=== PATIENT | female | born 1930 | race Caucasian/White ===

== ENCOUNTER → 2017-05-24 | Outpatient (CLI) | payer MEDICARE, OTHER ==
[2014-08-20 13:00] VITALS: BP 145/70
[~2017-05-24] MED LIST: ALPR0.254 PO; ASPI-482 PO; CALCIUM PO; DILT120C80 PO; ERGO500027 PO; FERR-26 PO; FURO-69 PO; GABA-586 PO; LOPE2TAB27 PO; LORA10TA68 PO; METO50TA2 PO; MULT1TAB88 PO; Oxycodone Hcl/Acetaminophen PO; POLY17PO29 PO; POTA20TA82 PO; PRED2.5T PO; PROP10DR3 EACHEYE; WARF2.5T83 PO; Warfarin Sodium MC; XOPENEX1.25 MG/3 IH; ZOLP6.252 PO
== END | disposition home or self-care (01) ==
LOC: PMGWOUND 08:59
PROVIDERS: ATTEND Preventive Medicine Undersea and Hyperbaric Medicine
DX: I87.312 Chronic venous hypertension (idiopathic) with ulcer of left lower extremity (principal); L97.821 Non-pressure chronic ulcer of other part of left lower leg limited to breakdown of skin; M81.0 Age-related osteoporosis without current pathological fracture; J44.9 Chronic obstructive pulmonary disease, unspecified; I11.0 Hypertensive heart disease with heart failure; I50.9 Heart failure, unspecified; F32.9 Major depressive disorder, single episode, unspecified; I48.91 Unspecified atrial fibrillation; M19.90 Unspecified osteoarthritis, unspecified site
CPT/HCPCS: 97597

== ENCOUNTER 2017-05-28 08:25 | Day surgery (SDC) | payer MEDICARE, OTHER ==
[~2017-05-28 08:25] MED LIST changes: -ALPR0.254 PO; -ASPI-482 PO; -CALCIUM PO; -DILT120C80 PO; -ERGO500027 PO; -FERR-26 PO; -FURO-69 PO; -GABA-586 PO; +HYDROmorphone 2 MG/ML VIAL IV; +LIDOCAINE 1% PF 2 ML VIAL. ID; -LOPE2TAB27 PO; -LORA10TA68 PO; -METO50TA2 PO; -MULT1TAB88 PO; +ONDANSETRON PF 4 MG/2 ML VIAL. IV; -Oxycodone Hcl/Acetaminophen PO; -POLY17PO29 PO; -POTA20TA82 PO; -PRED2.5T PO; +PROCHLORPERAZINE 10 MG/2 ML VIAL. IV; -PROP10DR3 EACHEYE; -WARF2.5T83 PO; -Warfarin Sodium MC; -XOPENEX1.25 MG/3 IH; -ZOLP6.252 PO
[2017-05-28] MEDS ORDERED: PROPOFOL 20 ML IV (09:06)
[2017-05-28] MEDS ORDERED: LIDOCAINE 2% PF Vial for OR 5 ML VIAL. (09:07)
[2017-05-28] MEDS ORDERED: fentaNYL PF VIAL 100 MCG/2 ML VIAL ×2 (09:07→11:18)
[2017-05-28] MEDS: IV RINGERS,LACTATED 1000ML 1,000 ML IV (09:15)
[2017-05-28 09:27] LABS: INR 1.3 (0.8-1.1); PROTHROMBIN TIME PATIENT 15.3 SEC (11.7-14.0)
[2017-05-28] MEDS ORDERED: BUPIVAC MPF-EPI 0.5%-1:200000 30 ML VIAL. (10:28)
[2017-05-28] MEDS ORDERED: BUPIVACAINE MPF 0.5% 30 ML VIAL. (10:28)
[2017-05-28] MEDS: BUPIVACAINE MPF 0.5% 30 ML VIAL. IJ (10:44)
[2017-05-28] MEDS: SURGICEL HEMOSTAT 4X8 EACH. TP (10:44)
[2017-05-28] MEDS: NEOMY/BACITR/POLYMYXIN OINT PACKET. TP (10:44)
[2017-05-28] MEDS ORDERED: ONDANSETRON PF 4 MG/2 ML VIAL. (10:48)
[2017-05-28] MEDS ORDERED: SURGICEL HEMOSTAT 4X8 EACH. (10:57)
[2017-05-28] MEDS ORDERED: NEOMY/BACITR/POLYMYXIN OINT PACKET. TP (10:58)
[2017-05-28] MEDS: fentaNYL PF VIAL 100 MCG/2 ML VIAL IV ×3 (11:20→11:49)
[2017-05-28] MEDS ORDERED: MORPHINE SULFATE 2 MG/ML DISP.SYRIN. (11:47)
[2017-05-28] MEDS: MORPHINE SULFATE 2 MG/ML DISP.SYRIN. IV ×2 (11:58→12:11)
[2017-05-28] MEDS: HYDROcodone/APAP 10/325 1 TAB TABLET PO (12:38)
== END 2017-05-28 13:43 | disposition home or self-care (01) ==
LOC: SURG 08:25
DX: S81.802A Unspecified open wound, left lower leg, initial encounter (principal); I87.2 Venous insufficiency (chronic) (peripheral); I48.1 Persistent atrial fibrillation; E66.01 Morbid (severe) obesity due to excess calories; Z68.38 Body mass index [BMI] 38.0-38.9, adult; Z79.899 Other long term (current) drug therapy; Z98.890 Other specified postprocedural states; X58.XXXA Exposure to other specified factors, initial encounter; Y93.89 Activity, other specified; Y92.89 Other specified places as the place of occurrence of the external cause; Y99.8 Other external cause status; Z91.040 Latex allergy status; Z91.048 Other nonmedicinal substance allergy status
CPT/HCPCS: 11043; 36415; 85610; J0690; J2270; J2405; J2704; J3010; J3490

== ENCOUNTER → 2017-06-03 | Outpatient (CLI) | payer MEDICARE, OTHER ==
[2017-05-28 11:55] VITALS: BP 117/70
[~2017-06-03] MED LIST changes: +ACET325T9 PO; +ALPR0.254 PO; +ASPI-482 PO; +CALCIUM PO; +CETI10TA22 PO; +DILT120C80 PO; +DOCU100C28 PO; +ERGO500027 PO; +FERR-26 PO; +FURO-69 PO; +GABA-586 PO; +HYDR-963 PO; -HYDROmorphone 2 MG/ML VIAL IV; -LIDOCAINE 1% PF 2 ML VIAL. ID; +LOPE2TAB27 PO; +LORA10TA68 PO; +METO50TA6 PO; +MINE120C TP; +MIRT15TA PO; +MULT1TAB88 PO; +NYST1POW2 PO; -ONDANSETRON PF 4 MG/2 ML VIAL. IV; +Oxycodone Hcl/Acetaminophen PO; +POLY17PO29 PO; +POTA20TA82 PO; +PRED2.5T PO; -PROCHLORPERAZINE 10 MG/2 ML VIAL. IV; +PROP10DR3 EACHEYE; +PSYL3.4P PO; +WARF2.5T83 PO; +WARF3TAB7 PO; +Warfarin Sodium MC; +XOPENEX1.25 MG/3 IH; +ZOLP6.252 PO
== END | disposition home or self-care (01) ==
LOC: PMGWOUND 11:23
PROVIDERS: ATTEND Emergency Medicine Undersea and Hyperbaric Medicine
DX: I87.392 Chronic venous hypertension (idiopathic) with other complications of left lower extremity (principal); L97.223 Non-pressure chronic ulcer of left calf with necrosis of muscle; I48.91 Unspecified atrial fibrillation; I89.0 Lymphedema, not elsewhere classified; J44.9 Chronic obstructive pulmonary disease, unspecified; F32.9 Major depressive disorder, single episode, unspecified; M19.90 Unspecified osteoarthritis, unspecified site; E66.01 Morbid (severe) obesity due to excess calories; Z68.38 Body mass index [BMI] 38.0-38.9, adult; M81.0 Age-related osteoporosis without current pathological fracture; I11.0 Hypertensive heart disease with heart failure; I50.9 Heart failure, unspecified
CPT/HCPCS: 97597

== ENCOUNTER → 2017-06-05 | Outpatient (CLI) | payer MEDICARE, OTHER ==
[2017-05-28 11:55] VITALS: BP 117/70
[~2017-06-05] MED LIST changes: -DOCU100C28 PO; +METO50TA2 PO; -METO50TA6 PO; -NYST1POW2 PO; -WARF3TAB7 PO
== END | disposition home or self-care (01) ==
LOC: PMGWOUND 11:53
PROVIDERS: ATTEND Preventive Medicine Undersea and Hyperbaric Medicine
DX: I87.392 Chronic venous hypertension (idiopathic) with other complications of left lower extremity (principal); L97.223 Non-pressure chronic ulcer of left calf with necrosis of muscle; J44.9 Chronic obstructive pulmonary disease, unspecified; I48.91 Unspecified atrial fibrillation; M81.0 Age-related osteoporosis without current pathological fracture; I11.0 Hypertensive heart disease with heart failure; I50.9 Heart failure, unspecified; F32.9 Major depressive disorder, single episode, unspecified; M19.90 Unspecified osteoarthritis, unspecified site; I89.0 Lymphedema, not elsewhere classified; E66.01 Morbid (severe) obesity due to excess calories; Z68.38 Body mass index [BMI] 38.0-38.9, adult
CPT/HCPCS: 97605

== ENCOUNTER → 2017-06-07 | Outpatient (CLI) | payer MEDICARE, OTHER ==
[2017-05-28 11:55] VITALS: BP 117/70
[~2017-06-07] MED LIST changes: -METO50TA2 PO; +METO50TA6 PO
== END | disposition home or self-care (01) ==
LOC: PMGWOUND 10:48
PROVIDERS: ATTEND Preventive Medicine Undersea and Hyperbaric Medicine
DX: I87.392 Chronic venous hypertension (idiopathic) with other complications of left lower extremity (principal); L97.223 Non-pressure chronic ulcer of left calf with necrosis of muscle; I48.91 Unspecified atrial fibrillation; I11.0 Hypertensive heart disease with heart failure; I50.9 Heart failure, unspecified; F32.9 Major depressive disorder, single episode, unspecified; J44.9 Chronic obstructive pulmonary disease, unspecified; M81.0 Age-related osteoporosis without current pathological fracture; M19.90 Unspecified osteoarthritis, unspecified site; I89.0 Lymphedema, not elsewhere classified; E66.01 Morbid (severe) obesity due to excess calories; Z68.38 Body mass index [BMI] 38.0-38.9, adult
CPT/HCPCS: 97597; 97605

== ENCOUNTER → 2017-06-10 | Outpatient (CLI) | payer MEDICARE, OTHER ==
[2017-05-28 11:55] VITALS: BP 117/70
== END | disposition home or self-care (01) ==
LOC: PMGWOUND 10:47
PROVIDERS: ATTEND Emergency Medicine Undersea and Hyperbaric Medicine
DX: I87.392 Chronic venous hypertension (idiopathic) with other complications of left lower extremity (principal); L97.223 Non-pressure chronic ulcer of left calf with necrosis of muscle; M81.0 Age-related osteoporosis without current pathological fracture; J44.9 Chronic obstructive pulmonary disease, unspecified; F32.9 Major depressive disorder, single episode, unspecified; E66.01 Morbid (severe) obesity due to excess calories; I48.91 Unspecified atrial fibrillation; M19.90 Unspecified osteoarthritis, unspecified site; I11.0 Hypertensive heart disease with heart failure; I50.9 Heart failure, unspecified; I89.0 Lymphedema, not elsewhere classified; Z68.38 Body mass index [BMI] 38.0-38.9, adult
CPT/HCPCS: 97605

== ENCOUNTER → 2017-06-12 | Outpatient (CLI) | payer MEDICARE, OTHER ==
[2017-05-28 11:55] VITALS: BP 117/70
== END | disposition home or self-care (01) ==
LOC: PMGWOUND 10:41
PROVIDERS: ATTEND Preventive Medicine Undersea and Hyperbaric Medicine
DX: I87.392 Chronic venous hypertension (idiopathic) with other complications of left lower extremity (principal); L97.223 Non-pressure chronic ulcer of left calf with necrosis of muscle; I48.91 Unspecified atrial fibrillation; M81.0 Age-related osteoporosis without current pathological fracture; I89.0 Lymphedema, not elsewhere classified; J44.9 Chronic obstructive pulmonary disease, unspecified; F32.9 Major depressive disorder, single episode, unspecified; M19.90 Unspecified osteoarthritis, unspecified site; I11.0 Hypertensive heart disease with heart failure; I50.9 Heart failure, unspecified; E66.01 Morbid (severe) obesity due to excess calories; Z68.38 Body mass index [BMI] 38.0-38.9, adult
CPT/HCPCS: 97605

== ENCOUNTER → 2017-06-14 | Outpatient (CLI) | payer MEDICARE, OTHER ==
[2017-05-28 11:55] VITALS: BP 117/70
== END | disposition home or self-care (01) ==
LOC: PMGWOUND 10:35
PROVIDERS: ATTEND Preventive Medicine Undersea and Hyperbaric Medicine
DX: I87.392 Chronic venous hypertension (idiopathic) with other complications of left lower extremity (principal); L97.223 Non-pressure chronic ulcer of left calf with necrosis of muscle; I48.91 Unspecified atrial fibrillation; M81.0 Age-related osteoporosis without current pathological fracture; J44.9 Chronic obstructive pulmonary disease, unspecified; I11.0 Hypertensive heart disease with heart failure; I50.9 Heart failure, unspecified; F32.9 Major depressive disorder, single episode, unspecified; M19.90 Unspecified osteoarthritis, unspecified site; I89.0 Lymphedema, not elsewhere classified; E66.01 Morbid (severe) obesity due to excess calories; Z68.38 Body mass index [BMI] 38.0-38.9, adult
CPT/HCPCS: 97597

== ENCOUNTER → 2017-06-17 | Outpatient (CLI) | payer MEDICARE, OTHER ==
[2017-05-28 11:55] VITALS: BP 117/70
== END | disposition home or self-care (01) ==
LOC: PMGWOUND 10:48
PROVIDERS: ATTEND Emergency Medicine Undersea and Hyperbaric Medicine
DX: I87.392 Chronic venous hypertension (idiopathic) with other complications of left lower extremity (principal); L97.223 Non-pressure chronic ulcer of left calf with necrosis of muscle; J44.9 Chronic obstructive pulmonary disease, unspecified; F32.9 Major depressive disorder, single episode, unspecified; E66.01 Morbid (severe) obesity due to excess calories; M19.90 Unspecified osteoarthritis, unspecified site; M81.0 Age-related osteoporosis without current pathological fracture; I89.0 Lymphedema, not elsewhere classified; I11.0 Hypertensive heart disease with heart failure; I50.9 Heart failure, unspecified; I48.1 Persistent atrial fibrillation; Z68.38 Body mass index [BMI] 38.0-38.9, adult
CPT/HCPCS: 97605

== ENCOUNTER → 2017-06-19 | Outpatient (CLI) | payer MEDICARE, OTHER ==
[2017-05-28 11:55] VITALS: BP 117/70
[~2017-06-19] MED LIST changes: +DOCU100C28 PO; +NYST1POW2 PO; +WARF3TAB7 PO
== END | disposition home or self-care (01) ==
LOC: PMGWOUND 10:38
PROVIDERS: ATTEND Preventive Medicine Undersea and Hyperbaric Medicine
DX: I87.312 Chronic venous hypertension (idiopathic) with ulcer of left lower extremity (principal); L97.223 Non-pressure chronic ulcer of left calf with necrosis of muscle; M81.0 Age-related osteoporosis without current pathological fracture; J44.9 Chronic obstructive pulmonary disease, unspecified; I11.0 Hypertensive heart disease with heart failure; I50.9 Heart failure, unspecified; I89.0 Lymphedema, not elsewhere classified; I48.1 Persistent atrial fibrillation; F32.9 Major depressive disorder, single episode, unspecified; M19.90 Unspecified osteoarthritis, unspecified site; G47.30 Sleep apnea, unspecified; H46.9 Unspecified optic neuritis; X58.XXXD Exposure to other specified factors, subsequent encounter
CPT/HCPCS: 97605

== ENCOUNTER → 2017-06-24 | Outpatient (CLI) | payer MEDICARE, OTHER ==
[2017-05-28 11:55] VITALS: BP 117/70
== END | disposition home or self-care (01) ==
LOC: PMGWOUND 13:10
PROVIDERS: ATTEND Emergency Medicine Undersea and Hyperbaric Medicine
DX: I87.312 Chronic venous hypertension (idiopathic) with ulcer of left lower extremity (principal); L97.223 Non-pressure chronic ulcer of left calf with necrosis of muscle; J44.9 Chronic obstructive pulmonary disease, unspecified; F32.9 Major depressive disorder, single episode, unspecified; E66.01 Morbid (severe) obesity due to excess calories; M19.90 Unspecified osteoarthritis, unspecified site; M81.0 Age-related osteoporosis without current pathological fracture; I89.0 Lymphedema, not elsewhere classified; I11.0 Hypertensive heart disease with heart failure; I50.9 Heart failure, unspecified; I48.1 Persistent atrial fibrillation; Z68.38 Body mass index [BMI] 38.0-38.9, adult
CPT/HCPCS: 97605

== ENCOUNTER → 2017-06-26 | Outpatient (CLI) | payer MEDICARE, OTHER ==
[2017-05-28 11:55] VITALS: BP 117/70
[~2017-06-26] MED LIST changes: -DOCU100C28 PO; -NYST1POW2 PO; -WARF3TAB7 PO
== END | disposition home or self-care (01) ==
LOC: PMGWOUND 10:51
PROVIDERS: ATTEND Preventive Medicine Undersea and Hyperbaric Medicine
DX: I87.312 Chronic venous hypertension (idiopathic) with ulcer of left lower extremity (principal); L97.223 Non-pressure chronic ulcer of left calf with necrosis of muscle; J44.9 Chronic obstructive pulmonary disease, unspecified; F32.9 Major depressive disorder, single episode, unspecified; E66.01 Morbid (severe) obesity due to excess calories; M19.90 Unspecified osteoarthritis, unspecified site; M81.0 Age-related osteoporosis without current pathological fracture; I89.0 Lymphedema, not elsewhere classified; I11.0 Hypertensive heart disease with heart failure; I50.9 Heart failure, unspecified; I48.1 Persistent atrial fibrillation; Z68.38 Body mass index [BMI] 38.0-38.9, adult
CPT/HCPCS: 97605

== ENCOUNTER → 2017-06-28 | Outpatient (CLI) | payer MEDICARE, OTHER ==
[2017-05-28 11:55] VITALS: BP 117/70
== END | disposition home or self-care (01) ==
LOC: PMGWOUND 10:42
PROVIDERS: ATTEND Preventive Medicine Undersea and Hyperbaric Medicine
DX: I87.312 Chronic venous hypertension (idiopathic) with ulcer of left lower extremity (principal); L97.223 Non-pressure chronic ulcer of left calf with necrosis of muscle; J44.9 Chronic obstructive pulmonary disease, unspecified; F32.9 Major depressive disorder, single episode, unspecified; E66.01 Morbid (severe) obesity due to excess calories; G47.30 Sleep apnea, unspecified; M19.90 Unspecified osteoarthritis, unspecified site; M81.0 Age-related osteoporosis without current pathological fracture; I89.0 Lymphedema, not elsewhere classified; I11.0 Hypertensive heart disease with heart failure; I50.9 Heart failure, unspecified; I48.1 Persistent atrial fibrillation; Z68.38 Body mass index [BMI] 38.0-38.9, adult
CPT/HCPCS: 97597; 97605

== ENCOUNTER → 2017-07-02 | Outpatient (CLI) | payer MEDICARE, OTHER ==
[2017-05-28 11:55] VITALS: BP 117/70
== END | disposition home or self-care (01) ==
LOC: PMGWOUND 09:17
PROVIDERS: ATTEND Emergency Medicine Undersea and Hyperbaric Medicine
DX: I87.312 Chronic venous hypertension (idiopathic) with ulcer of left lower extremity (principal); L97.223 Non-pressure chronic ulcer of left calf with necrosis of muscle; J44.9 Chronic obstructive pulmonary disease, unspecified; F32.9 Major depressive disorder, single episode, unspecified; E66.01 Morbid (severe) obesity due to excess calories; G47.30 Sleep apnea, unspecified; M19.90 Unspecified osteoarthritis, unspecified site; M81.0 Age-related osteoporosis without current pathological fracture; I89.0 Lymphedema, not elsewhere classified; I11.0 Hypertensive heart disease with heart failure; I50.9 Heart failure, unspecified; I48.1 Persistent atrial fibrillation; Z68.38 Body mass index [BMI] 38.0-38.9, adult
CPT/HCPCS: 97605

== ENCOUNTER → 2017-07-05 | Outpatient (CLI) | payer MEDICARE, OTHER | END | disposition home or self-care (01) | LOC: PMGWOUND 09:11 | DX: I87.312 Chronic venous hypertension (idiopathic) with ulcer of left lower extremity (principal); L97.223 Non-pressure chronic ulcer of left calf with necrosis of muscle; J44.9 Chronic obstructive pulmonary disease, unspecified; F32.9 Major depressive disorder, single episode, unspecified; G47.30 Sleep apnea, unspecified; M19.90 Unspecified osteoarthritis, unspecified site; M81.0 Age-related osteoporosis without current pathological fracture; I89.0 Lymphedema, not elsewhere classified; I11.0 Hypertensive heart disease with heart failure; I50.9 Heart failure, unspecified; I48.1 Persistent atrial fibrillation; E66.01 Morbid (severe) obesity due to excess calories; Z68.38 Body mass index [BMI] 38.0-38.9, adult | CPT/HCPCS: 97597; 97605 ==

== ENCOUNTER 2017-07-06 14:09 | Inpatient (IN) | payer MEDICARE, OTHER ==
[2017-07-06 14:40] LABS: ADD MAN DIFF? NO
[2017-07-06 14:43] LABS: BASO # 0.1 x10^3/uL (0.0-0.2); BASO % 1 % (0-3); EOS % 0 % (0-3); HEMOGLOBIN 13.5 g/dL (12.0-15.5); LYMPH # 1.1 x10^3/uL (1.0-4.8); LYMPH % 8 % (24-48); MEAN CORPUSCULAR HEMOGLOBIN 28 pg (25-35); MEAN CORPUSCULAR HGB CONC 31 g/dL (31-37); MEAN CORPUSCULAR VOLUME 89 fL (79-100); MONO # 1.3 x10^3/uL (0.0-1.1); MONO % 9 % (0-9); NEUT % 83 % (31-73); PLATELET COUNT 151 x10^3/uL (140-400); RED BLOOD COUNT 4.82 x10^6/uL (3.50-5.40); RED CELL DISTRIBUTION WIDTH 15.8 % (11.5-14.5); WHITE BLOOD COUNT 14.5 x10^3/uL (4.0-11.0)
[2017-07-06 14:55] LABS: FIBRINOGEN 532 mg/dL (200-440); PARTIAL THROMBOPLASTIN TIME 35 SEC (24-38)
[2017-07-06 14:56] LABS: INR 1.9 (0.8-1.1); PROTHROMBIN TIME PATIENT 20.7 SEC (11.7-14.0)
[2017-07-06 14:59] LABS: ANION GAP 9 (6-14); BILIRUBIN,URINE NEGATIVE (NEG); BLOOD UREA NITROGEN 15 mg/dL (7-20); BUN/CREATININE RATIO 19 (6-20); CALCIUM 8.6 mg/dL (8.5-10.1); CARBON DIOXIDE 34 mmol/L (21-32); CHLORIDE 97 mmol/L (98-107); CLARITY,URINE CLEAR; COLOR,URINE YELLOW; CREATININE 0.8 mg/dL (0.6-1.0); GFR 68.2; GLUCOSE 126 mg/dL (70-99); GLUCOSE,URINE NEGATIVE (NEG); NITRITE,URINE NEGATIVE (NEG); POTASSIUM 3.2 mmol/L (3.5-5.1); PROTEIN,URINE 30 mg/dL (NEG-TRACE); SODIUM 140 mmol/L (136-145)
[2017-07-06] MEDS: IV NORMAL SALINE 1000ML BAG 1,000 ML IV ×2 (15:01→17:14)
[2017-07-06 15:06] LABS: ALBUMIN/GLOBULIN RATIO 0.8 (1.0-1.7); ALK PHOS 70 U/L (46-116); ALT (SGPT) 13 U/L (14-59); AST (SGOT) 16 U/L (15-37); CREATINE KINASE 17 U/L (26-192); LIPASE 51 U/L (73-393); TOTAL BILIRUBIN 0.8 mg/dL (0.2-1.0); TOTAL PROTEIN 6.7 g/dL (6.4-8.2)
[2017-07-06 15:07] LABS: LACTIC ACID 1.3 mmol/L (0.4-2.0)
[2017-07-06 15:12] LABS: TROPONINI < 0.017 ng/mL (0.000-0.055)
[2017-07-06 15:12] LABS: BACTERIA,URINE 0 /HPF (0-FEW); RBC,URINE OCC /HPF (0-2); SQUAMOUS EPITHELIAL CELL,UR MOD /LPF; WBC,URINE OCC /HPF (0-4)
[2017-07-06 15:18] LABS: BASE EXCESS COOX 8 mmol/L (-3-3); CARBON MONOXIDE 1.1 % (0.0-1.9); HCO3 COOX 31 mmol/L (21-28); METHEMOGLOBIN 0.3 % (0.0-1.9); OXYHEMOGLOBIN 95.5 %; PCO2 COOX 39 mmHg (35-46); PO2 COOX 84 mmHg (65-108); SAT O2 COOX 97 % (92-99); TOTAL HEMOGLOBIN 13.7 g/dL
[2017-07-06 15:22] LABS: PH COOX 7.52 (7.35-7.45)
[2017-07-06] MEDS: VANCOMYCIN PER PHARMACY MC ×2 (16:30→19:41)
[2017-07-06] MEDS ORDERED: AMPICILLIN/SULBACTAM IV Push 3 GM VIAL. IVP (16:30)
[2017-07-06] MEDS: AMPICILLIN/SULBACTAM 3 GM in IV NORMAL SALINE 100ML 100 ML IV (16:53)
[2017-07-06] MEDS: dilTIAZem IV PUSH 25 MG/5 ML VIAL IVP (17:15)
[2017-07-06] MEDS: VANCOMYCIN 2 GM in IV DEXTROSE 5 %-0.2 % NACL 500 ML IV (17:36)
[2017-07-06] MEDS ORDERED: MINERAL OIL/PETROLATUM TOPICAL CREAM 113GM JAR. TP (22:45)
[2017-07-06] MEDS ORDERED: ACETAMINOPHEN 325 MG TABLET. PO (22:45)
[2017-07-06] MEDS ORDERED: PSYLLIUM HUSK (SUGAR FREE) 1 PKT PACKET PO (22:45)
[2017-07-06] MEDS ORDERED: ANTI-COAG MONITOR BY PHARMACY. MC (23:45)
[2017-07-07] MEDS: MIRTAZAPINE 15 MG TABLET PO ×2 (00:03→21:05)
[2017-07-07] MEDS: PIPERACILLIN/TAZOBACTAM 3.375 GM in IV DEXTROSE 5% 50 ML IV (00:03)
[2017-07-07] MEDS: WARFARIN 3 MG TABLET. PO ×2 (00:04→16:56)
[2017-07-07] MEDS: GABAPENTIN 300 MG CAPSULE. PO ×2 (00:05→21:05)
[2017-07-07] MEDS: METOPROLOL TART IMMED RELEASE 50 MG TABLET. PO ×3 (00:05→21:05)
[2017-07-07 05:09] LABS: ADD MAN DIFF? NO
[2017-07-07 05:15] LABS: BASO % 0 % (0-3); EOS % 0 % (0-3); HEMATOCRIT 40.6 % (36.0-47.0); HEMOGLOBIN 12.8 g/dL (12.0-15.5); LYMPH # 1.1 x10^3/uL (1.0-4.8); LYMPH % 9 % (24-48); MEAN CORPUSCULAR HEMOGLOBIN 28 pg (25-35); MEAN CORPUSCULAR HGB CONC 31 g/dL (31-37); MEAN CORPUSCULAR VOLUME 89 fL (79-100); MONO # 1.2 x10^3/uL (0.0-1.1); MONO % 10 % (0-9); NEUT # 9.7 x10^3uL (1.8-7.7); NEUT % 81 % (31-73); PLATELET COUNT 153 x10^3/uL (140-400); RED BLOOD COUNT 4.54 x10^6/uL (3.50-5.40); RED CELL DISTRIBUTION WIDTH 15.8 % (11.5-14.5); WHITE BLOOD COUNT 12.1 x10^3/uL (4.0-11.0)
[2017-07-07] MEDS: ASPIRIN ENTERIC COATED 81 MG TABLET.DR. PO (05:44)
[2017-07-07] MEDS: MULTIVITAMIN with MINERAL TABLET. PO (05:44)
[2017-07-07] MEDS: PIPERACILLIN/TAZO IV Push 3.375 GM VIAL. IVP ×3 (05:45→18:11)
[2017-07-07] MEDS: HYDROcodone/APAP 10/325 1 TAB TABLET PO (05:45)
[2017-07-07 06:00] LABS: ALBUMIN 2.5 g/dL (3.4-5.0); ALBUMIN/GLOBULIN RATIO 0.7 (1.0-1.7); ALK PHOS 63 U/L (46-116); ALT (SGPT) 12 U/L (14-59); ANION GAP 8 (6-14); AST (SGOT) 17 U/L (15-37); BLOOD UREA NITROGEN 10 mg/dL (7-20); BUN/CREATININE RATIO 17 (6-20); CARBON DIOXIDE 31 mmol/L (21-32); CHLORIDE 100 mmol/L (98-107); CREATININE 0.6 mg/dL (0.6-1.0); GLUCOSE 108 mg/dL (70-99); POTASSIUM 3.1 mmol/L (3.5-5.1); SODIUM 139 mmol/L (136-145); TOTAL BILIRUBIN 0.8 mg/dL (0.2-1.0); TOTAL PROTEIN 6.1 g/dL (6.4-8.2)
[2017-07-07 06:09] LABS: PROTHROMBIN TIME PATIENT 21.1 SEC (11.7-14.0)
[2017-07-07] MEDS: POTASSIUM CHLORIDE 20 MEQ TABLET.ER. PO ×2 (09:09→16:56)
[2017-07-07] MEDS: CETIRIZINE HCL 10 MG TABLET. PO (09:10)
[2017-07-07] MEDS: POLYETHYLENE GLYCOL 3350 17 GM PACKET. PO (09:10)
[2017-07-07] MEDS: FUROSEMIDE 20 MG TABLET PO ×2 (09:11→16:56)
[2017-07-07] MEDS: ACETAMINOPHEN 325 MG TABLET. PO (09:17)
[2017-07-07] MEDS: MICAFUNGIN 100 MG in IV NORMAL SALINE 100ML 100 ML IV (16:57)
[2017-07-07] MEDS: VANCOMYCIN 1.75 GM in IV DEXTROSE 5 %-0.2 % NACL 500 ML IV (18:22)
[2017-07-07] MEDS: POLYVINYL ALCOHOL 1.4% OPHTH SOLUTION 15ML BOTTLE. OU ×2 (21:04)
[2017-07-07] MEDS: NYSTATIN TOPICAL POWDER 15GM BOTTLE. TP (21:04)
[2017-07-07] MEDS: DOCUSATE SODIUM 100 MG CAPSULE. PO (21:04)
[2017-07-08] MEDS: PIPERACILLIN/TAZO IV Push 3.375 GM VIAL. IVP ×4 (00:14→17:25)
[2017-07-08 05:12] LABS: ADD MAN DIFF? NO
[2017-07-08 05:31] LABS: BASO % 0 % (0-3); EOS # 0.1 x10^3/uL (0.0-0.7); EOS % 2 % (0-3); HEMATOCRIT 42.1 % (36.0-47.0); HEMOGLOBIN 13.1 g/dL (12.0-15.5); LYMPH % 10 % (24-48); MEAN CORPUSCULAR HEMOGLOBIN 28 pg (25-35); MEAN CORPUSCULAR HGB CONC 31 g/dL (31-37); MEAN CORPUSCULAR VOLUME 90 fL (79-100); MONO # 1.1 x10^3/uL (0.0-1.1); MONO % 11 % (0-9); NEUT # 7.6 x10^3uL (1.8-7.7); NEUT % 77 % (31-73); PLATELET COUNT 175 x10^3/uL (140-400); RED BLOOD COUNT 4.66 x10^6/uL (3.50-5.40); RED CELL DISTRIBUTION WIDTH 16.1 % (11.5-14.5); WHITE BLOOD COUNT 9.9 x10^3/uL (4.0-11.0)
[2017-07-08 05:38] LABS: INR 2.6 (0.8-1.1); PROTHROMBIN TIME PATIENT 25.9 SEC (11.7-14.0)
[2017-07-08 05:59] LABS: ALBUMIN 2.4 g/dL (3.4-5.0); ALBUMIN/GLOBULIN RATIO 0.6 (1.0-1.7); ALK PHOS 65 U/L (46-116); ALT (SGPT) 12 U/L (14-59); ANION GAP 6 (6-14); AST (SGOT) 18 U/L (15-37); BLOOD UREA NITROGEN 10 mg/dL (7-20); BUN/CREATININE RATIO 17 (6-20); CALCIUM 8.2 mg/dL (8.5-10.1); CARBON DIOXIDE 35 mmol/L (21-32); CHLORIDE 102 mmol/L (98-107); CREATININE 0.6 mg/dL (0.6-1.0); GLUCOSE 97 mg/dL (70-99); POTASSIUM 3.2 mmol/L (3.5-5.1); SODIUM 143 mmol/L (136-145); TOTAL BILIRUBIN 0.6 mg/dL (0.2-1.0); TOTAL PROTEIN 6.3 g/dL (6.4-8.2)
[2017-07-08] MEDS: POLYETHYLENE GLYCOL 3350 17 GM PACKET. PO (08:00)
[2017-07-08] MEDS: VANCOMYCIN PER PHARMACY MC ×2 (08:04→19:45)
[2017-07-08] MEDS: POTASSIUM CHLORIDE 20 MEQ TABLET.ER. PO ×2 (08:56→17:24)
[2017-07-08] MEDS: METOPROLOL TART IMMED RELEASE 50 MG TABLET. PO ×2 (08:57→21:40)
[2017-07-08] MEDS: MULTIVITAMIN with MINERAL TABLET. PO (08:57)
[2017-07-08] MEDS: ASPIRIN ENTERIC COATED 81 MG TABLET.DR. PO (08:57)
[2017-07-08] MEDS: CETIRIZINE HCL 10 MG TABLET. PO (08:58)
[2017-07-08] MEDS: FUROSEMIDE 20 MG TABLET PO ×2 (08:58→17:24)
[2017-07-08] MEDS: HYDROcodone/APAP 10/325 1 TAB TABLET PO (10:47)
[2017-07-08 17:15] LABS: VANC TR 9.4 mcg/mL (10.0-20.0)
[2017-07-08] MEDS: WARFARIN 1 MG TABLET. PO (17:24)
[2017-07-08] MEDS: MICAFUNGIN 100 MG in IV NORMAL SALINE 100ML 100 ML IV (17:25)
[2017-07-08] MEDS: VANCOMYCIN 2 GM in IV DEXTROSE 5 %-0.2 % NACL 500 ML IV (20:44)
[2017-07-08] MEDS: MIRTAZAPINE 15 MG TABLET PO (21:38)
[2017-07-08] MEDS: POLYVINYL ALCOHOL 1.4% OPHTH SOLUTION 15ML BOTTLE. OU (21:38)
[2017-07-08] MEDS: DOCUSATE SODIUM 100 MG CAPSULE. PO (21:38)
[2017-07-08] MEDS: GABAPENTIN 300 MG CAPSULE. PO (21:39)
[2017-07-09] MEDS: PIPERACILLIN/TAZO IV Push 3.375 GM VIAL. IVP ×2 (00:08→05:14)
[2017-07-09] MEDS: HYDROcodone/APAP 10/325 1 TAB TABLET PO ×2 (05:10→12:06)
[2017-07-09 06:05] LABS: ADD MAN DIFF? NO
[2017-07-09 06:13] LABS: BASO % 0 % (0-3); EOS # 0.2 x10^3/uL (0.0-0.7); EOS % 2 % (0-3); HEMATOCRIT 43.3 % (36.0-47.0); HEMOGLOBIN 13.6 g/dL (12.0-15.5); LYMPH % 12 % (24-48); MEAN CORPUSCULAR HEMOGLOBIN 28 pg (25-35); MEAN CORPUSCULAR HGB CONC 31 g/dL (31-37); MEAN CORPUSCULAR VOLUME 91 fL (79-100); MONO # 1.1 x10^3/uL (0.0-1.1); MONO % 13 % (0-9); NEUT # 6.2 x10^3uL (1.8-7.7); NEUT % 73 % (31-73); PLATELET COUNT 192 x10^3/uL (140-400); RED BLOOD COUNT 4.78 x10^6/uL (3.50-5.40); RED CELL DISTRIBUTION WIDTH 16.3 % (11.5-14.5); WHITE BLOOD COUNT 8.4 x10^3/uL (4.0-11.0)
[2017-07-09 06:20] LABS: INR 2.7 (0.8-1.1); PROTHROMBIN TIME PATIENT 26.9 SEC (11.7-14.0)
[2017-07-09 06:54] LABS: ALBUMIN 2.3 g/dL (3.4-5.0); ALBUMIN/GLOBULIN RATIO 0.5 (1.0-1.7); ALK PHOS 64 U/L (46-116); ALT (SGPT) 11 U/L (14-59); ANION GAP 7 (6-14); AST (SGOT) 15 U/L (15-37); BLOOD UREA NITROGEN 11 mg/dL (7-20); BUN/CREATININE RATIO 18 (6-20); CALCIUM 8.2 mg/dL (8.5-10.1); CARBON DIOXIDE 35 mmol/L (21-32); CHLORIDE 101 mmol/L (98-107); CREATININE 0.6 mg/dL (0.6-1.0); GLUCOSE 101 mg/dL (70-99); POTASSIUM 3.4 mmol/L (3.5-5.1); SODIUM 143 mmol/L (136-145); TOTAL BILIRUBIN 0.7 mg/dL (0.2-1.0); TOTAL PROTEIN 6.6 g/dL (6.4-8.2)
[2017-07-09] MEDS: POTASSIUM CHLORIDE 20 MEQ TABLET.ER. PO ×2 (08:31→17:54)
[2017-07-09] MEDS: ASPIRIN ENTERIC COATED 81 MG TABLET.DR. PO (08:32)
[2017-07-09] MEDS: METOPROLOL TART IMMED RELEASE 50 MG TABLET. PO ×2 (08:32→22:19)
[2017-07-09] MEDS: MULTIVITAMIN with MINERAL TABLET. PO (08:32)
[2017-07-09] MEDS: CETIRIZINE HCL 10 MG TABLET. PO (08:33)
[2017-07-09] MEDS: FUROSEMIDE 20 MG TABLET PO ×2 (08:33→17:53)
[2017-07-09] MEDS: POLYETHYLENE GLYCOL 3350 17 GM PACKET. PO (09:01)
[2017-07-09] MEDS: DOXYCYCLINE HYCLATE 100 MG TABLET PO ×2 (09:03→22:18)
[2017-07-09] MEDS: AMOXICILLIN/K CLAV 875/125MG TABLET. PO ×2 (09:03→22:18)
[2017-07-09] MEDS: WARFARIN 3 MG TABLET. PO (18:13)
[2017-07-09] MEDS: MIRTAZAPINE 15 MG TABLET PO (22:18)
[2017-07-09] MEDS: DOCUSATE SODIUM 100 MG CAPSULE. PO (22:18)
[2017-07-09] MEDS: LACTOBACILLUS RHAMNOSUS GG 1 CAPSULE. PO (22:18)
[2017-07-09] MEDS: POLYVINYL ALCOHOL 1.4% OPHTH SOLUTION 15ML BOTTLE. OU (22:18)
[2017-07-09] MEDS: GABAPENTIN 300 MG CAPSULE. PO (22:18)
[2017-07-10 04:12] LABS: ADD MAN DIFF? NO
[2017-07-10 04:25] LABS: PROTHROMBIN TIME PATIENT 29.3 SEC (11.7-14.0)
[2017-07-10 04:59] LABS: BASO % 0 % (0-3); EOS # 0.2 x10^3/uL (0.0-0.7); EOS % 3 % (0-3); HEMATOCRIT 41.4 % (36.0-47.0); HEMOGLOBIN 12.9 g/dL (12.0-15.5); LYMPH # 0.9 x10^3/uL (1.0-4.8); LYMPH % 11 % (24-48); MEAN CORPUSCULAR HEMOGLOBIN 28 pg (25-35); MEAN CORPUSCULAR HGB CONC 31 g/dL (31-37); MEAN CORPUSCULAR VOLUME 90 fL (79-100); MONO # 1.1 x10^3/uL (0.0-1.1); MONO % 13 % (0-9); NEUT # 6.3 x10^3uL (1.8-7.7); NEUT % 73 % (31-73); PLATELET COUNT 204 x10^3/uL (140-400); RED BLOOD COUNT 4.59 x10^6/uL (3.50-5.40); WHITE BLOOD COUNT 8.6 x10^3/uL (4.0-11.0)
[2017-07-10 05:27] LABS: ALBUMIN 2.4 g/dL (3.4-5.0); ALBUMIN/GLOBULIN RATIO 0.6 (1.0-1.7); ALK PHOS 66 U/L (46-116); ALT (SGPT) 11 U/L (14-59); ANION GAP 8 (6-14); AST (SGOT) 17 U/L (15-37); BLOOD UREA NITROGEN 11 mg/dL (7-20); BUN/CREATININE RATIO 18 (6-20); CALCIUM 8.8 mg/dL (8.5-10.1); CARBON DIOXIDE 34 mmol/L (21-32); CHLORIDE 100 mmol/L (98-107); CREATININE 0.6 mg/dL (0.6-1.0); GLUCOSE 115 mg/dL (70-99); POTASSIUM 4.1 mmol/L (3.5-5.1); SODIUM 142 mmol/L (136-145); TOTAL BILIRUBIN 0.7 mg/dL (0.2-1.0); TOTAL PROTEIN 6.6 g/dL (6.4-8.2)
[2017-07-10] MEDS: POTASSIUM CHLORIDE 20 MEQ TABLET.ER. PO (09:08)
[2017-07-10] MEDS: POLYETHYLENE GLYCOL 3350 17 GM PACKET. PO (09:09)
[2017-07-10] MEDS: AMOXICILLIN/K CLAV 875/125MG TABLET. PO (09:09)
[2017-07-10] MEDS: FUROSEMIDE 20 MG TABLET PO (09:10)
[2017-07-10] MEDS: METOPROLOL TART IMMED RELEASE 50 MG TABLET. PO (09:10)
[2017-07-10] MEDS: ASPIRIN ENTERIC COATED 81 MG TABLET.DR. PO (09:12)
[2017-07-10] MEDS: DOXYCYCLINE HYCLATE 100 MG TABLET PO (09:12)
[2017-07-10] MEDS: LACTOBACILLUS RHAMNOSUS GG 1 CAPSULE. PO (09:12)
[2017-07-10] MEDS: MULTIVITAMIN with MINERAL TABLET. PO (09:13)
[2017-07-10] MEDS: CETIRIZINE HCL 10 MG TABLET. PO (09:19)
[2017-07-10] MEDS: ACETAMINOPHEN 325 MG TABLET. PO (10:29)
[2017-07-10] MEDS ORDERED: WARFARIN 1 MG TABLET. PO (16:00)
== END 2017-07-10 16:15 | disposition home or self-care (01) | DRG 871 ==
LOC: ER 14:09 → 2 NORTH 16:20
DX: A41.9 Sepsis, unspecified organism (principal); G92 Toxic encephalopathy; E86.0 Dehydration; I48.91 Unspecified atrial fibrillation; L03.116 Cellulitis of left lower limb; B35.9 Dermatophytosis, unspecified; Z66 Do not resuscitate; M19.90 Unspecified osteoarthritis, unspecified site; I48.92 Unspecified atrial flutter; Z96.651 Presence of right artificial knee joint; Z79.01 Long term (current) use of anticoagulants; Z82.3 Family history of stroke; Z91.040 Latex allergy status; Z91.048 Other nonmedicinal substance allergy status
CPT/HCPCS: 36415; 71010; 80053; 80202; 81001; 82550; 82805; 83605; 83690; 84145; 84484; 85025; 85384; 85610; 85730; 87040; 93005; 96360; 97162-GP; 97166-GO; 97530-GP; 97535-GO; 99291; 99291-25; J0295; J2248; J2543; J3370; J3490; J7030

== ENCOUNTER → 2017-07-12 | Outpatient (CLI) | payer MEDICARE, OTHER | END | disposition home or self-care (01) | LOC: PMGWOUND 10:22 | DX: I87.312 Chronic venous hypertension (idiopathic) with ulcer of left lower extremity (principal); L97.223 Non-pressure chronic ulcer of left calf with necrosis of muscle; J44.9 Chronic obstructive pulmonary disease, unspecified; F32.9 Major depressive disorder, single episode, unspecified; G47.30 Sleep apnea, unspecified; M19.90 Unspecified osteoarthritis, unspecified site; M81.0 Age-related osteoporosis without current pathological fracture; I89.0 Lymphedema, not elsewhere classified; I11.0 Hypertensive heart disease with heart failure; I50.9 Heart failure, unspecified; H46.9 Unspecified optic neuritis; I48.1 Persistent atrial fibrillation; E66.01 Morbid (severe) obesity due to excess calories; Z68.38 Body mass index [BMI] 38.0-38.9, adult | CPT/HCPCS: 97597; 97605 ==

== ENCOUNTER → 2017-07-15 | Outpatient (CLI) | payer MEDICARE, OTHER | END | disposition home or self-care (01) | LOC: PMGWOUND 09:07 | DX: I87.312 Chronic venous hypertension (idiopathic) with ulcer of left lower extremity (principal); L97.223 Non-pressure chronic ulcer of left calf with necrosis of muscle; J44.9 Chronic obstructive pulmonary disease, unspecified; F32.9 Major depressive disorder, single episode, unspecified; G47.30 Sleep apnea, unspecified; M19.90 Unspecified osteoarthritis, unspecified site; M81.0 Age-related osteoporosis without current pathological fracture; I89.0 Lymphedema, not elsewhere classified; I11.0 Hypertensive heart disease with heart failure; I50.9 Heart failure, unspecified; H46.9 Unspecified optic neuritis; I48.1 Persistent atrial fibrillation; E66.01 Morbid (severe) obesity due to excess calories; Z68.38 Body mass index [BMI] 38.0-38.9, adult | CPT/HCPCS: 97605 ==

== ENCOUNTER → 2017-07-17 | Outpatient (CLI) | payer MEDICARE, OTHER | END | disposition home or self-care (01) | LOC: PMGWOUND 09:10 | DX: I87.312 Chronic venous hypertension (idiopathic) with ulcer of left lower extremity (principal); L97.223 Non-pressure chronic ulcer of left calf with necrosis of muscle; J44.9 Chronic obstructive pulmonary disease, unspecified; F32.9 Major depressive disorder, single episode, unspecified; G47.30 Sleep apnea, unspecified; M19.90 Unspecified osteoarthritis, unspecified site; M81.0 Age-related osteoporosis without current pathological fracture; I89.0 Lymphedema, not elsewhere classified; I11.0 Hypertensive heart disease with heart failure; I50.9 Heart failure, unspecified; H46.9 Unspecified optic neuritis; I48.1 Persistent atrial fibrillation; E66.01 Morbid (severe) obesity due to excess calories; Z68.38 Body mass index [BMI] 38.0-38.9, adult | CPT/HCPCS: 97605 ==